=== PATIENT | male | born 1985 | race Two or more races ===

== ENCOUNTER 2021-04-18 15:59 | Emergency (ER) | payer OTHER ==
[~2021-04-18] VITALS: Ht 180.3 cm; Wt 113.4 kg
[2021-04-18 16:15] VITALS: BP 145/89
== END 2021-04-18 17:48 | disposition left against medical advice (07) ==
LOC: ER 15:59
DX: R10.30 Lower abdominal pain, unspecified (principal); R11.2 Nausea with vomiting, unspecified; Z53.21 Procedure and treatment not carried out due to patient leaving prior to being seen by health care provider